=== PATIENT | female | born 1960 | race Caucasian/White ===

== ENCOUNTER 2023-08-03 19:53 | Inpatient (IN) | payer BC, SELFPAY ==
[2023-08-03] VITALS (11 sets, daily range): BP systolic 118–174; BP diastolic 60–113; PULSE 88–178; RESP 15–24; TEMP 36.1; O2SAT 93–97; BMI 44.7
--- NOTE | 2023-08-03 | ECG_ITS ---
Test Reason : CHEST PAIN Blood Pressure : / mmHG Vent. Rate : 157 BPM Atrial Rate : 314 BPM P-R Int : 000 ms QRS Dur : 076 ms QT Int : 242 ms P-R-T Axes : 215 055 268 degrees QTc Int : 391 ms Atrial flutter with 2:1 A-V conduction Abnormal ECG No previous ECGs available Referred By: Prabha Medina Electronically Signed By:BRENDAN BRITO
--- NOTE | 2023-08-03 | ECG_ITS ---
Test Reason : RHYTHM CHAGE Blood Pressure : / mmHG Vent. Rate : 082 BPM Atrial Rate : 082 BPM P-R Int : 164 ms QRS Dur : 074 ms QT Int : 366 ms P-R-T Axes : 024 031 044 degrees QTc Int : 427 ms Normal sinus rhythm Normal ECG When compared with ECG of 03-AUG-2023 22:31, Sinus rhythm has replaced Atrial fibrillation Vent. rate has decreased BY [address] no longer depressed in Anterior leads Referred By: Prabha Medina Electronically Signed By:BRENDAN BRITO
--- NOTE | 2023-08-03 | ECG_ITS ---
Test Reason : AFIB Blood Pressure : / mmHG Vent. Rate : 161 BPM Atrial Rate : 000 BPM P-R Int : 000 ms QRS Dur : 072 ms QT Int : 270 ms P-R-T Axes : 000 055 -17 degrees QTc Int : 441 ms Rhythm shows atrial flutter with variable block (can't exclude fibrillation) Nonspecific ST abnormality Abnormal ECG When compared with ECG of 03-AUG-2023 20:06, No significant changes seen Referred By: Prabha Medina Electronically Signed By:BRENDAN BRITO
--- NOTE | ~2023-08-03 | XR_ITS ---
EXAMINATION: XR CHEST CLINICAL INFORMATION: Chest pain COMPARISON: None available. TECHNIQUE: Frontal view of the chest was obtained. FINDINGS: No significant abnormality is noted involving the heart, lungs, mediastinum, bony thorax or soft tissues. XR/XR chest 1V IMPRESSION: Unremarkable examination.
[2023-08-03 20:19] LABS: MANUAL DIFF FLAG NO
--- NOTE | 2023-08-03 20:19 | ED_ITS ---
HPI - Chest Pain General Chief Complaint: Chest Pain Stated Complaint: chest pain Time Seen by Provider: 08/03/23 20:06 History of Present Illness HPI narrative: 63 y/o F patient; PMH HLD; [id number] to [facility] a with report of sudden onset heart palpitations associated with a central non- radiating chest pressure. The patient denies any prior history of similar symptoms. She took 81mg PO aspirin prior to arrival. The patient denies alcohol use, smoking, or recreational drug use. Related Data Allergies Allergy/AdvReac Type Severity Reaction Status Date / Time No Known Allergies Allergy Verified 08/03/23 20:57 Review of Systems 2 Review of Systems: Yes all other systems are reviewed and are negative [facility] Past Medical History Attestation statement: The following information was validated with the patient. Social History Social History Advance Directives: No Advance Directives Information Provided: No Physical Exam 2 Vital Signs: Vital Signs: Last Vital Signs Temp 96.9 F 08/03/23 19:56 Pulse 155 H 08/03/23 21:35 Resp 16 08/03/23 21:35 BP 121/62 08/03/23 21:35 Pulse Ox 96 08/03/23 21:35 O2 Del Method Room Air 08/03/23 21:35 BMI result Body Mass Index 44.7 Patient is afebrile, hypertensive, with an irregularly irregular rate. Const: Orientation/consciousness: patient oriented x3 HEENT: Head: Yes atraumatic Eyes: Pupils: Equal, round and reactive pupils present EOM: EOMs intact bilaterally Neck: Neck: Yes full ROM, Yes supple and No tender Chest: Chest palpation & inspection: normal inspection of the chest and normal palpation of entire chest wall Resp: Effort & Inspection: normal respiratory effort, able to speak in complete sentences and no respiratory distress Auscultation: clear to auscultation bilaterally Cardio: Rate: tachycardic Rhythm: other (irregularly irregular) P eripheral pulses: Peripheral pulses 2+ throughout GI: Palpation (GI): Soft to palpation, not firm, nontender, no guarding and not rigid Auscultation: normal bowel sounds Neuro: General: patient oriented x3 Cranial nerves: Yes Equal, round and reactive pupils present Course Course Course Narrative: Patient is afebrile, stable but in atrial fibrillation with RVR. Provided diltiazem 25mg IVP with some temporary improvement, then provided second dose diltiazem 35mg IVP. Patient urinated with mild improvement in HR. Provided third dose diltiazem 35mg IVP. HR improved in <110BPM. Provided 60mg Diltiazem PO. Discussed with cardiology. Recommend eliquis 5mg PO. Recommend diltiazem gtt. Plan: Admit to hospitalist for new onset a flutter with RVR Condition: Stable Medications Administered Generic Name Dose Route Start Last Admin Trade Name Freq PRN Reason Stop Dose Admin Sodium Chloride 1,000 mls @ 999 mls/hr 08/03/23 21:00 08/03/23 20:58 Ns IV 08/03/23 22:00 999 mls/hr .Q1H1M SYLVIE Administration Potassium Chloride 10 meq in 100 mls @ 100 mls/hr 08/03/23 21:00 08/03/23 21:22 Potassium Chloride/H20 IV 08/03/23 22:59 100 mls/hr Q1H SYLVIE Administration Discontinued Medications Generic Name Dose Route Start Last Admin Trade Name Freq PRN Reason Stop Dose Admin Apixaban 5 mg 08/03/23 21:22 08/03/23 21:37 Apixaban 5 Mg Tablet PO 08/03/23 21:23 5 mg ONCE ONE Administration Diltiazem HCl 25 mg 08/03/23 20:13 08/03/23 20:24 Diltiazem Hcl 50 Mg/10 Ml Vial IVPUSH 08/03/23 20:14 25 mg STAT STA Administration Diltiazem HCl 35 mg 08/03/23 20:28 08/03/23 20:36 Diltiazem Hcl 30 Mg Tablet PO 08/03/23 20:29 Not Given ONCE ONE Protocol Diltiazem HCl 35 mg 08/03/23 20:37 08/03/23 20:35 Diltiazem Hcl 50 Mg/10 Ml Vial IVPUSH 08/03/23 20:38 35 mg STAT STA Administration Diltiazem HCl 35 mg 08/03/23 20:55 08/03/23 20:49 Diltiazem Hcl 50 Mg/10 Ml Vial IVPUSH 08/03/23 20:56 35 mg STAT STA Administration Diltiazem HCl 60 mg 08/03/23 20:57 08/03/23 21:12 Diltiazem Hcl 60 Mg Tablet PO 08/03/23 20:58 Not Given ONCE ONE Protocol Diltiazem HCl 30 mg 08/03/23 21:13 08/03/23 21:15 Diltiazem Hcl 30 Mg Tablet PO 08/03/23 21:14 30 mg ONCE ONE Administration Protocol Diltiazem HCl 30 mg 08/03/23 21:14 08/03/23 21:15 Diltiazem Hcl 30 Mg Tablet PO 08/03/23 21:15 30 mg ONCE ONE Administration Protocol Potassium Chloride 20 meq 08/03/23 20:54 08/03/23 21:03 Potassium Chloride Er 20 Meq Tab.Er.Prt PO 08/03/23 20:55 20 meq ONCE ONE Administration Medical Decision Making Lab Data 08/03/23 20:15 08/03/23 21:11 Labs: Lab Results 08/03/23 08/03/23 Range/Units 20:15 21:11 WBC 7.9 (4.8-10.8) X10*3/uL RBC 5.18 (4.20-5.50) X10*6/uL Hgb 14.8 (12.0-16.0) g/dl Hct 43.9 (37.0-47.0) % MCV 84.7 (80.0-98.0) fL MCH 28.6 (27.0-33.0) pg MCHC 33.7 (31.0-35.0) g/dl RDW 13.8 (11.0-16.0) % Plt Count 270 (160-400) X10*3/uL MPV 11.6 (9.4-12.3) fL Immature Gran % (Auto) 0.3 (0.0-0.4) % Neut % (Auto) 45.2 (45-73) % Lymph % (Auto) 45.2 H (20-40) % [place] % (Auto) 6.9 (2-11) % Eos % (Auto) 1.9 (0-4) % Baso % (Auto) 0.5 (0-2) % Lymph # (Auto) 3.6 (1.2-4.9) X10*3/uL [place] # (Auto) 0.5 (0.1-1.2) X10*3/uL Eos # (Auto) 0.2 (0.0-0.4) X10*3/uL Baso # (Auto) 0.0 (0.0-0.2) X10*3/uL Abs Immat Gran (auto) 0.02 (0.00-0.03) X10*3/uL Absolute Neuts (auto) 3.6 (2.0-8.3) x10*3/uL Absolute Nucleated RBC 0.000 (0.0-0.012) X10*3/uL Nucleated RBC % (auto) 0.0 (0.0-0.2) /100WBC PT 11.9 (11.1-13.3) SEC INR 1.0 (0.9-1.1) Sodium 141 (135-145) mmol/L Potassium 3.2 L 4.3 D (3.3-5.1) mmol/L Chloride 105 (96-108) mmol/L Carbon Dioxide 23 (22-29) mmol/L Anion Gap 16 (12-20) BUN 14 (9-16) mg/dL Creatinine 0.99 (0.5-1.4) mg/dL Estim Creat Clear Calc 69.1 Estimated GFR 57 Random Glucose 128 H (60-115) mg/dL Calcium 10.2 (8.4-10.2) mg/dL Magnesium 1.9 (1.6-2.6) mg/dL Total Bilirubin 0.4 (0.0-1.0) mg/dL Direct Bilirubin 0.1 (0.0-0.5) mg/dL AST 21 (5-31) U/L ALT 17 (0-31) U/L Alkaline Phosphatase 77 (39-117) U/L Troponin I High Sens 4.1 (<3.5-17.0) ng/L Total Protein 7.7 (6.5-8.0) g/dL Albumin 4.5 (3.5-5.0) g/dL Independent Interpretation I performed an independent interpretation of an: EKG Interpretation: Atrial flutter 157BPM with RVR, no prior EKG for comparison. Radiology Impression Discussion of test interpretation with radiology: I have reviewed the radiologist's reading. Radiologist Impression: EXAMINATION: XR CHEST CLINICAL INFORMATION: Chest pain COMPARISON: None available. TECHNIQUE: Frontal view of the chest was obtained. FINDINGS: No significant abnormality is noted involving the heart, lungs, mediastinum, bony thorax or soft tissues. XR/XR chest 1V IMPRESSION: Unremarkable examination. Discharge Plan Discharge Clinical Impression: Atrial flutter Patient Disposition: Admitted As Inpatient
[2023-08-03 20:20] LABS: Basophils Percent Auto 0.5 % (0-2); Eosinophils Absolute Auto 0.2 X10*3/uL (0.0-0.4); Eosinophils Percent Auto 1.9 % (0-4); Hematocrit 43.9 % (37.0-47.0); Hemoglobin 14.8 g/dl (12.0-16.0); Imm Gran Abs Auto 0.02 X10*3/uL (0.00-0.03); Imm Gran Pct Auto 0.3 % (0.0-0.4); Lymphocytes Absolute Auto 3.6 X10*3/uL (1.2-4.9); Lymphocytes Percent Auto 45.2 % (20-40); Mean Corpuscular HGB Conc 33.7 g/dl (31.0-35.0); Mean Corpuscular Hemoglobin 28.6 pg (27.0-33.0); Mean Corpuscular Volume 84.7 fL (80.0-98.0); Mean Platelet Volume 11.6 fL (9.4-12.3); Monocytes Absolute Auto 0.5 X10*3/uL (0.1-1.2); Monocytes Percent Auto 6.9 % (2-11); Neutrophils Absolute Auto 3.6 x10*3/uL (2.0-8.3); Neutrophils Percent Auto 45.2 % (45-73); Platelet Count 270 X10*3/uL (160-400); Red Blood Count 5.18 X10*6/uL (4.20-5.50); Red Cell Distribution Width 13.8 % (11.0-16.0); White Blood Count 7.9 X10*3/uL (4.8-10.8)
[2023-08-03] MEDS: dilTIAZem HCL 50 MG/10 ML VIAL 25 MG IVPUSH (20:24)
--- NOTE | 2023-08-03 20:25 | MHC.EDTECH ---
This Tech assumed care of this pt upon arrival. Pt changed over into a hospital gown and placed on a panel monitor. EKG completed and handed to a provider
--- NOTE | 2023-08-03 20:25 | PC.NURSE ---
Addendum entered by Mary Bravo 08/03/23 21:35: 2nd IV line established. Plan for Cardizem drip. VSS @ this time. Pt denies pain/discomfort. Addendum entered by Mary Bravo 08/03/23 21:17: Pt medicated with PO Cardizem 60 mg and PO Potassium. HR continues to fluctuate 120-150 bpm. Pt continues to deny pain/discomfort. VSS. MD at bedside. Addendum entered by Mary Bravo 08/03/23 20:49: Pt medicated with an additional dose of 35 mg @ 2048 due to persistent Afib per MD order as BP remains WNL. Addendum entered by Mary Bravo 08/03/23 20:42: HR 100 bpm, BP stable after second dose of Cardizem. Pt assisted to bedside commode by this RN and behavioral health tech. HR increasing to 190 bpm/min with exertion/movement. Pt continues to deny pain/discomfort. MD at bedside. Addendum entered by Mary Bravo 08/03/23 20:37: Little effect noted after first dose. HR briefly decreased to 100 bpm but quickly increased back to 180/min. Pt medicated with an additional dose of Cardizem @ 2034. Pt remains pain free @ this time, requesting to use commode. VSS. Original Note: Medicated per AUG.
[2023-08-03 20:27] LABS: Prothrombin Time 11.9 SEC (11.1-13.3)
[2023-08-03] MEDS: dilTIAZem HCL 50 MG/10 ML VIAL 35 MG IVPUSH ×2 (20:35→20:49)
[2023-08-03 20:37] LABS: Alanine Aminotransferase 17 U/L (0-31); Albumin Level 4.5 g/dL (3.5-5.0); Alkaline Phosphatase 77 U/L (39-117); Anion Gap 16 (12-20); Aspartate Amino Transferase 21 U/L (5-31); Bilirubin Direct 0.1 mg/dL (0.0-0.5); Bilirubin Total 0.4 mg/dL (0.0-1.0); Blood Urea Nitrogen 14 mg/dL (9-16); Calcium 10.2 mg/dL (8.4-10.2); Carbon Dioxide 23 mmol/L (22-29); Chloride 105 mmol/L (96-108); Creatinine Clr Calc Pharmacy 69.1; Estimated Glomerular Filt Rate 57; Glucose Random 128 mg/dL (60-115); Magnesium 1.9 mg/dL (1.6-2.6); Potassium 3.2 mmol/L (3.3-5.1); Sodium 141 mmol/L (135-145); Total Protein 7.7 g/dL (6.5-8.0)
[2023-08-03 20:43] LABS: Troponin-I High Sensitivity 4.1 ng/L (<3.5-17.0)
[2023-08-03] MEDS: 0.9 % Sodium Chloride 1,000 ML 999 ML IV (20:58)
[2023-08-03] MEDS: Potassium Chloride ER 20 MEQ TAB.ER.PRT PO (21:03)
[2023-08-03] MEDS: dilTIAZem HCL 30 MG TABLET PO ×2 (21:15)
[2023-08-03] MEDS: Potassium Chloride/H20 10 MEQ/100 ML PIGGYBACK 100 MEQ IV ×2 (21:22→22:34)
[2023-08-03] MEDS: Apixaban 5 MG TABLET PO (21:37)
[2023-08-03 21:38] LABS: Potassium 4.3 mmol/L (3.3-5.1)
[2023-08-03] MEDS: dilTIAZem HCL 125 MG in 0.9 % Sodium Chloride 100 ML IVCONT (21:45)
--- NOTE | 2023-08-03 21:45 | PC.NURSE ---
Assumed care of pt. Pt lying on stretcher, no acute distress. Starting Dilt drip per orders.
[2023-08-03 21:52] LABS: Thyroid Stimulating Hormone 6.34 uIU/mL (0.32-4.0)
[2023-08-03 21:55] LABS: Influenza A PCR NEGATIVE (Negative); Influenza B PCR NEGATIVE (Negative); Resp Syncy Virus RNA Qual PCR NEGATIVE (Negative); SARS COV2 PCR INHOUSE NEGATIVE (Negative)
--- NOTE | 2023-08-03 21:59 | PC.NURSE ---
Pt aware of plan for admission. Report given to FRANCISCO Garcia.
[2023-08-03] MEDS: Metoprolol Tartrate 50 MG TABLET PO (22:18)
--- NOTE | 2023-08-03 22:37 | PHA.MEDREC ---
Pharmacy Consult ? Medication Reconciliation Pharmacy has completed the medication reconciliation. Patient reported medications. Shayy Medley, BlayneD
--- NOTE | 2023-08-03 22:51 | PC.NURSE ---
Pt not responding to dilt drip, despite tiotration. Oral medication given with delayed response, now converted to NSR.
--- NOTE | 2023-08-03 23:22 | PC.NURSE ---
Diltiazem drip paused per Charlie AGUILA.
--- NOTE | 2023-08-03 23:39 | PM.IMHP ---
History of Present Illness Date of Service: 08/03/23 Attending physician on admission: Antonieta Chiu Chief Complaint: Palpitations Madhavi Viera is a very pleasant 63 years old woman with past medical history significant for hyperlipidemia on fenofibrate presents to the emergency department complaining of sudden onset of right-sided chest pain associated with palpitations around 7 pm while she was watching a comedy movie. She was also experiencing shortness of breath and lightheadedness. No events of syncope were reported. She denied headache, nausea or vomiting. She did not report any abdominal pain. There is no fever or chills. She denied recent consumption of alcohol. She denied tobacco smoking or illicit drug use. She took a baby aspirin before coming to the emergency department. Patient denies history of strokes, hypertension, congestive heart failure or diabetes. She takes aspirin daily. In the ED, she was found to have severe tachycardia (HR went up to 180 bpm consistent with SVT). The rest of vital signs are normal. Blood workup is remarkable for hypokalemia, 3.2; otherwise her CBC and CMP are basically normal. TSH is 6.34. Viral testing for influenza and COVID-19 is negative. CXR is negative. ED tx: total of 155 mg of diltiazem p.o., total of 95 mg of diltiazem IV, metoprolol 50 mg PO, then diltiazem IV infusion and potassium 10 mEq IV, Eliquis 5 mg PO. During my 1st encounter with the patient her heart rate was fluctuating between 160-180 bpm consistent with SVT. The patient was looking quite uncomfortable. Cardiology service was recontacted by ED provider and recommended digoxin IV if tachycardia persists. Subsequently, patient heart rate converted to normal sinus rhythm. Review of Systems Review of Systems: All 12 systems were reviewed and normal except as noted in HPI. [facility] Medical History (Updated 08/04/23 @ 02:20 by Antonieta Chiu MD) Hyperlipidemia Social History Smoked in Last 30 Days: No Use of substances other than those prescribed or required for medical reasons: No Advance Directives: No Advance Directives Information Provided: No Patient : No Meds Allergies Allergy/AdvReac Type Severity Reaction Status Date / Time No Known Allergies Allergy Verified 08/03/23 20:57 Active Medications: Current Medications Acetaminophen (Acetaminophen 325 Mg Tablet) 975 mg PO Q6H PRN PRN Reason: Pain, Mild (Pain Scale 1-3) Apixaban (Apixaban 5 Mg Tablet) 5 mg PO Q12H [facility] Diltiazem HCl 125 mg/ Sodium (Chloride) 125 mls @ 0 mls/hr IVCONT .Q0M [facility]; Protocol Last Titration: 08/03/23 23:22 Dose: 0 mg/hr, 0 mls/hr Melatonin (Melatonin 3 Mg Tablet) 6 mg PO BEDTIME PRN PRN Reason: Insomnia Metoprolol Tartrate (Metoprolol Tartrate 50 Mg Tablet) 50 mg PO Q12H [facility]; Protocol Sodium Chloride (0.9 % Sodium Chloride Flush 3 Ml Syringe) 3 ml IVFLUSH QSHIFT [facility] Home meds: (pt also takes aspirin 81 mg PO daily). Home Medications Medication Instructions Recorded Confirmed Last Taken Type Probiotic 1 cap PO DAILY 08/03/23 08/03/23 08/03/23 History ascorbic acid (vitamin C) 500 mg 500 mg PO DAILY 08/03/23 08/03/23 08/03/23 History tablet cholecalciferol (vitamin D3) 25 25 mcg PO DAILY 08/03/23 08/03/23 08/03/23 History mcg (1,000 unit) tablet fenofibrate micronized 67 mg 67 mg PO QAM 08/03/23 08/03/23 08/03/23 History capsule pomegran fruit xt-pomegra seed 250 1 cap PO DAILY 08/03/23 08/03/23 08/03/23 History mg capsule Physical Exam Vital Signs and Narrative: Vital Signs: Last Vital Signs Temp 96.9 F 08/03/23 19:56 Pulse 88 08/03/23 23:07 Resp 15 08/03/23 23:07 BP 129/96 H 08/03/23 23:07 Pulse Ox 97 08/03/23 23:07 O2 Del Method Room Air 08/03/23 23:07 BMI result Body Mass Index 44.7 Constitutional - Awake and Alert, No apparent distress Eyes - PERRLA, EOMI Cardiovascular - Tachycardic. Irregular Respiratory - Normal lung expansion, Normal respiratory effort, No respiratory distress, CTA bilaterally. Tachypnea. Gastrointestinal - NT / ND; +BS; No rebound or guarding Extremities - no calf tenderness bilaterally, no swelling Skin - Warm/Dry Neurological - Alert & oriented x3, CN II-XII in tact, 5/5 strength BUE and BLE Psychological - Appropriate affect Results Labs 08/03/23 20:15 08/03/23 21:11 Labs: Laboratory Results - last 24 hr 08/03/23 08/03/23 20:15 21:11 MCV 84.7 MCH 28.6 MCHC 33.7 RDW 13.8 Plt Count 270 MPV 11.6 Immature Gran % (Auto) 0.3 Neut % (Auto) 45.2 Lymph % (Auto) 45.2 H [place] % (Auto) 6.9 Eos % (Auto) 1.9 Baso % (Auto) 0.5 Lymph # (Auto) 3.6 [place] # (Auto) 0.5 Eos # (Auto) 0.2 Baso # (Auto) 0.0 Abs Immat Gran (auto) 0.02 Absolute Neuts (auto) 3.6 Absolute Nucleated RBC 0.000 Nucleated RBC % (auto) 0.0 PT 11.9 INR 1.0 Anion Gap 16 Estim Creat Clear Calc 69.1 Estimated GFR 57 Random Glucose 128 H Calcium 10.2 Magnesium 1.9 Total Bilirubin 0.4 Direct Bilirubin 0.1 AST 21 ALT 17 Alkaline Phosphatase 77 Total Protein 7.7 Albumin 4.5 TSH 6.34 H Influenza Type A (PCR) NEGATIVE Influenza Type B (PCR) NEGATIVE RSV RNA Qual (PCR) NEGATIVE SARS-CoV-2 RNA (RT-PCR) NEGATIVE Imaging Radiologist's Impressions: Impressions Chest X-Ray 08/03/23 20:22 IMPRESSION: Unremarkable examination. Assessment and Plan (1) Hyperlipidemia: Qualifiers: Hyperlipidemia type: pure hypertriglyceridemia Qualified Code(s): E78.1 - Pure hyperglyceridemia Status: Acute (2) Elevated TSH: Status: Acute (3) Atrial flutter with rapid ventricular response: Status: Acute Plan Madhavi Viera is a 63 years old woman admitted with: Rapid AFib-AFlutter/SVT, new onset. Currently normal sinus rhythm and asymptomatic. Admit to hospitalist service. We will discontinue diltiazem drip. Start therapy with metoprolol tartrate 50 mg p.o. b.i.d. CHADS2 score = 0. Continue treatment with aspirin 81 mg p.o. daily unless cardiology service recommends anticoagulation. Check echocardiogram. Recheck troponin. Cardiology consult for further recommendations. Hyperlipidemia. Continue fenofibrate. Check fasting lipid panel. Elevated TSH. Check free T4. Obesity, BMI 44.7 kg/m2. Weight loss. DVT prophylaxis: received Eliquis. Code status: Full. Patient Will need hospitalization for at least 2 midnights for rapid AFib-AFlutter evaluation and treatment. She needs close cardiac monitoring and evaluation by specialists. Quality Stroke Does the patient have a stroke diagnosis?: No VTE Prior VTE?: No VTE Risk Level:: Medical - moderate - high VTE Device Contraindication: Treatment Not Indicated VTE Drug Contraindication: N/A - Med Ordered
--- NOTE | 2023-08-04 01:20 | PC.NURSE ---
Pt up and ambulating to bathroom with no acute distress, returned to the [facility].
[2023-08-04 02:03] VITALS: BP 111/60; PULSE 74; RESP 17; TEMP 36.6; O2SAT 93
[2023-08-04 02:04] VITALS: BP 111/60; PULSE 73; RESP 23; O2SAT 93
[2023-08-04 04:36] LABS: Free T4 (Free Thyroxine) 0.97 ng/dL (0.71-1.85)
[2023-08-04 05:46] LABS: Cholesterol 177 mg/dL (<200); HDL Cholesterol 51 mg/dL (>40); LDL Cholesterol Calculated 113 mg/dL (<100); Triglycerides 69 mg/dL (<150)
[2023-08-04 05:47] LABS: Troponin-I High Sensitivity 10.1 ng/L (<3.5-17.0)
[2023-08-04 05:50] VITALS: BP 114/68; PULSE 63; RESP 14; TEMP 36.6; O2SAT 94
[2023-08-04] MEDS: Metoprolol Tartrate 50 MG TABLET PO (06:23)
--- NOTE | 2023-08-04 07:00 | CA_ITS ---
Transthoracic Echocardiogram Patient (Last, First, Middle): Madhavi Viera, Gender: Female Date of : 1960 Age: 63 Procedure Date: 08/04/2023 Procedure Type: Transthoracic Echocardiogram Location: ER Height: 157.48 cm Weight: 110.68 kg BSA: 2.08 m2 Heart Rate: bpm BP: 114 / 68 mmHg Airline Hostess: Referring MD: Antonieta Chiu MD Symptoms: Rapid a-fib, new onset Study Quality: Adequate with contrast ECG Rhythm: Sinus Conclusions: - The left ventricular systolic function is hyperdynamic. The calculated ejection fraction is 71% by biplane method. - No obvious valvular pathology seen on this study. Findings Left Ventricle Normal left ventricular cavity size. The left ventricular systolic function is hyperdynamic. The calculated ejection fraction is 71% by biplane method. There is no evidence of regional wall motion abnormalities. Diastolic function is normal for age. There is mild septal and mild basal asymmetric hypertrophy. Right Ventricle Mildly increased right ventricular cavity size. There is normal right ventricular systolic function. Atria Both atria are normal in size. Aortic Valve There is a normal trileaflet aortic valve. There is no aortic valve stenosis. There is no aortic valve regurgitation. Mitral Valve The mitral valve appears normal. There is trace mitral valve regurgitation. There is no mitral valve stenosis. Pulmonic Valve The pulmonic valve is likely normal. Tricuspid Valve There is mild tricuspid valve regurgitation. There is no evidence of pulmonary hypertension. Great Vessels The asc aorta is normal in size. Venous The inferior vena cava is normal in size. Pericardium/Pleural There is no evidence of pericardial effusion. Prior Study Comparison No prior study available for comparison. Recommendations, Care & Conclusions No obvious valvular pathology seen on this study. Measurements 2D Linear Measurements IVSd: 1.14 0.6-0.9/0.6-1.0 cm LVIDd: 4.42 3.9-5.3/4.2-5.9 cm LVIDd Index: 2.13 2.4-3.2/2.2-3.1 cm/m2 LVIDs: 2.78 2.0-3.6 cm LVPWd: 1.04 0.7-1.1 cm Ao Root: 3.40 2.1-3.5 cm LA Diam: 4.10 2.7-3.8/3.0-4.0 cm LAIDs Index: 1.97 1.5-2.3 cm/m2 LV Mass: 209.19 67-162/88-224 g LV Mass Index: 100.57 43-95/49-115 g/m2 LVOT Diam: 2.50 3.0+(-)1.3 cm 2D Systolic Function EF 4C: 73.90 >55% EF 2C: 63.10 >55% EF BiP: 70.50 >55% Mitral Valve MV Pk E: 0.84 MV PK A: 0.60 MV Decel Time: 159.00 E/A: 1.40 E'Lateral: 9.46 E'Medial: 7.29 E/E' Med: 11.50 E/E' Lat: 8.80 PHT: 47.00 MVA PHT: 4.68 Decel [place]: 5.25 Aortic Valve AoV Pk Aiden: 1.62 AoV Mn Aiden: 1.03 AoV VTI: 0.30 AoV Pk Grad: 10.00 Aov Mn Grad: 5.00 RAI Cont.VTI: 4.05 LVOT LVOT Pk Aiden: 1.12 LVOT Mn Aiden: 0.72 LVOT VTI: 0.25 LVOT Pk Grad: 5.00 LVOT Mn Grad: 2.00 LVOT Diam: 2.50 LVOT Area: 4.91 Diastolic Function MV Pk E: 0.84 MV Pk A: 0.60 E/A: 1.40 E'Medial: 7.29 E/E' Med: 11.50 E' Laterial: 9.46 E/E' Lat: 8.80 Right Ventricle TAPSE (mm): 29.10 TVS' Aiden: 11.20 Tricuspid Valve TR Pk Aiden: 2.26 TR Pk Grad: 20.00 Great Vessels Aorta Ao Root-2D: 3.40 2.0-3.7 cm Ao Asc: 3.50 2.1-3.4 cm Pulmonary Valve PV Pk Aiden: 0.92 Peak PV Grad: 3.00 Updated in Other Vendor System with Status of Final Tristian Daigle MD electronically signed on 08/04/2023 8:35:29 AM with status of Final
[2023-08-04 07:08] LABS: Reflex LDLD? No
[2023-08-04 07:18] LABS: Estimated Average Glucose 120 mg/dL; Hemoglobin A1c % 5.8 % (<6.0)
[2023-08-04] MEDS: Cholecalciferol (Vitamin D3) 25 MCG TABLET PO (08:14)
[2023-08-04] MEDS: Ascorbic Acid 500 MG TABLET PO (08:14)
[2023-08-04] MEDS: Aspirin 81 MG TAB.CHEW PO (08:14)
[2023-08-04 08:16] VITALS: BP 118/50; PULSE 67; RESP 18; TEMP 36.7; O2SAT 95
[2023-08-04] MEDS: 0.9 % Sodium Chloride Flush 3 ML SYRINGE IVFLUSH (08:21)
--- NOTE | 2023-08-04 08:22 | PC.NURSE ---
alert and oriented, respirations even and unlabored. remains NSR on monitor at this time, no obvious signs/symptoms of distress noted. medicated per the MAR.
--- NOTE | 2023-08-04 08:29 | MHC.CM.PN ---
CM spoke with Patient. Patient lives in a house with her /HCP in [place]; she was in [place] to attend a , and she required no services nor DME STAFF EDITOR. Home/self care is the goal and CM has initiated and will follow for dc planning.Patient's PCP recently retired and she now sees a TOOL MARKER, but she cannot recall the name.
--- NOTE | 2023-08-04 08:41 | ECG_ITS ---
Test Reason : A FLUTTER Blood Pressure : / mmHG Vent. Rate : 062 BPM Atrial Rate : 062 BPM P-R Int : 150 ms QRS Dur : 078 ms QT Int : 456 ms P-R-T Axes : 032 027 071 degrees QTc Int : 462 ms Normal sinus rhythm Slight T inversion anterolateral leads Abnormal ECG When compared with ECG of 03-AUG-2023 22:47, T wave inversion now evident in Anterolateral leads Referred By: Brendan Brito Electronically Signed By:BRENDAN BRITO
--- NOTE | 2023-08-04 10:12 | PM.CNCAR ---
History of Present Illness History of Present Illness Date of Service: 08/04/23 Chief complaint: Rapid Atrial Fibrillation Narrative: This is a cardiology consultation regarding atrial flutter. Patient is actually from [place]. She is here for a which is supposed to be tomorrow. She does not have any history of cardiovascular issues including coronary artery disease or myocardial infarction or cardiomyopathy or in fact any other cardiac issues. She was walking in the mall yesterday morning and did not feel good. She thought as though she was feeling a bit short of breath. She was also having some headaches. This apparently unusual for her. Then last night, suddenly noticed some chest pressure and the same time she also had some palpitations. That led to ER visit when she was found to be in atrial flutter. She got intravenous medications and then after like 3 hours or so she went back in normal sinus rhythm. Then she felt fine. Today morning she feels completely normal. Prior to all this, no cardiovascular problems or symptoms. Review of Systems Review of Systems: Yes all other systems are reviewed and are negative Constitutional: Constitutional: Reports as per HPI and Reports no additional constitutional complaints Eyes: Eyes: Reports as per HPI and Denies no additional eye complaints ENT: Denies system reviewed and no additional complaints, except as documented and Reports as per HPI Cardiovascular: Cardiovascular: Reports as per HPI, Reports no additional cardiovascular complaints, Denies acrocyanosis, Denies cool extremities, Denies chest pain, Denies leg edema, Denies lightheadedness, Reports palpitations and Reports dyspnea Respiratory: Respiratory: Reports as per HPI, Denies no additional respiratory complaints and Reports dyspnea Gastrointestinal: Gastrointestinal: Reports as per HPI and Denies no additional gastrointestinal complaints Genitourinary: Genitourinary: Reports as per HPI Musculoskeletal: Musculoskeletal: Reports no additional musculoskeletal complaints and Reports as per HPI Integumentary/Breasts: Skin/Breast: Reports system reviewed and no additional complaints, except as docu Neurologic: Reports system reviewed and no additional complaints, except as documented and Reports as per HPI Psychiatric: Psychiatric: Reports no additional psychiatric complaints and Reports as per HPI Endocrine: Endocrine: Reports no additional endocrine complaints, Reports as per HPI and Reports palpitations Hematologic/Lymphatic: Hematologic/Lymphatic: Reports no additional hematologic/lymphatic complaints and Reports as per HPI Allergic/Immunologic: Allergic/Immunologic: Reports no additional allergic/immunologic complaints and Reports as per HPI [facility] Past Medical History Medical History (Updated 08/04/23 @ 02:20 by Antonieta Chiu MD) Hyperlipidemia Family History Family History (Updated 08/04/23 @ 10:15 by Tristian Daigle MD) Father Myocardial infarction Mother Atrial fibrillation Pacemaker Social History Social History Patient Tobacco Use Status: Tobacco use Unknown Smoked in Last 30 Days: No Use of substances other than those prescribed or required for medical reasons: No Advance Directives: No Advance Directives Information Provided: No Patient : No service: No Meds Allergies Allergy/AdvReac Type Severity Reaction Status Date / Time No Known Allergies Allergy Verified 08/03/23 20:57 Active Medications: Current Medications Acetaminophen (Acetaminophen 325 Mg Tablet) 975 mg PO Q6H PRN PRN Reason: Pain, Mild (Pain Scale 1-3) Ascorbic Acid (Ascorbic Acid 500 Mg Tablet) 500 mg PO DAILY [facility] Last Admin: 08/04/23 08:14 Dose: 500 mg Aspirin (Aspirin 81 Mg Tab.Chew) 81 mg PO DAILY [facility] Last Admin: 08/04/23 08:14 Dose: 81 mg Diltiazem HCl 125 mg/ Sodium (Chloride) 125 mls @ 0 mls/hr IVCONT .Q0M [facility]; Protocol Last Titration: 08/03/23 23:22 Dose: 0 mg/hr, 0 mls/hr Melatonin (Melatonin 3 Mg Tablet) 6 mg PO BEDTIME PRN PRN Reason: Insomnia Metoprolol Tartrate (Metoprolol Tartrate 50 Mg Tablet) 50 mg PO Q12H [facility]; Protocol Last Admin: 08/04/23 06:23 Dose: 50 mg Non-Formulary Medication (Fenofibrate Micronized) 67 mg PO DAILY [facility] Sodium Chloride (0.9 % Sodium Chloride Flush 3 Ml Syringe) 3 ml IVFLUSH QSHIFT [facility] Last Admin: 08/04/23 08:21 Dose: 3 ml Vitamin D (Cholecalciferol (Vitamin D3) 25 Mcg Tablet) 25 mcg PO DAILY [facility] Last Admin: 08/04/23 08:14 Dose: 25 mcg Home Medications Medication Instructions Recorded Confirmed Last Taken Type Probiotic 1 cap PO DAILY 08/03/23 08/03/23 08/03/23 History ascorbic acid (vitamin C) 500 mg 500 mg PO DAILY 08/03/23 08/03/23 08/03/23 History tablet cholecalciferol (vitamin D3) 25 25 mcg PO DAILY 08/03/23 08/03/23 08/03/23 History mcg (1,000 unit) tablet fenofibrate micronized 67 mg 67 mg PO QAM 08/03/23 08/03/23 08/03/23 History capsule pomegran fruit xt-pomegra seed 250 1 cap PO DAILY 08/03/23 08/03/23 08/03/23 History mg capsule Physical Exam Vital Signs: Vital Signs: Last Vital Signs Temp 98.0 F 08/04/23 08:16 Pulse 67 08/04/23 08:16 Resp 18 08/04/23 08:16 BP 118/50 L 08/04/23 08:16 Pulse Ox 95 08/04/23 08:16 O2 Del Method Room Air 08/04/23 08:16 BMI result Body Mass Index 44.7 Const: General: comfortable and no acute distress Orientation/consciousness: patient oriented x3 HEENT: Other: Unremarkable Head: Yes normal to inspection Neck: Neck: Yes normal visual inspection Chest: Chest palpation & inspection: normal inspection of the chest Resp: Auscultation: clear to auscultation bilaterally Cardio: Palpation: normal PMI Heart sounds: S1 normal heart sound present, S2 normal heart sound present, no gallops, no murmurs and no rubs GI: Palpation (GI): Soft to palpation Back/Spine/Pelvis: Other: unremarkable Skin: General skin exam: no rashes or lesions noted Neuro: General: patient oriented x3 Extrem: General: Yes normal to inspection Psych: Mental Status: mental status grossly normal Objective Labs and Meds 08/03/23 20:15 08/03/23 21:11 Lab results: Laboratory Results - last 24 hr 08/03/23 08/03/23 08/04/23 20:15 21:11 05:03 WBC 7.9 RBC 5.18 Hgb 14.8 Hct 43.9 MCV 84.7 MCH 28.6 MCHC 33.7 RDW 13.8 Plt Count 270 MPV 11.6 Immature Gran % (Auto) 0.3 Neut % (Auto) 45.2 Lymph % (Auto) 45.2 H [place] % (Auto) 6.9 Eos % (Auto) 1.9 Baso % (Auto) 0.5 Lymph # (Auto) 3.6 [place] # (Auto) 0.5 Eos # (Auto) 0.2 Baso # (Auto) 0.0 Abs Immat Gran (auto) 0.02 Absolute Neuts (auto) 3.6 Absolute Nucleated RBC 0.000 Nucleated RBC % (auto) 0.0 PT 11.9 INR 1.0 Sodium 141 Potassium 3.2 L 4.3 D Chloride 105 Carbon Dioxide 23 Anion Gap 16 BUN 14 Creatinine 0.99 Estim Creat Clear Calc 69.1 Estimated GFR 57 Random Glucose 128 H Estimat Average Glucose 120 Hemoglobin A1c % 5.8 Calcium 10.2 Magnesium 1.9 Total Bilirubin 0.4 Direct Bilirubin 0.1 AST 21 ALT 17 Alkaline Phosphatase 77 Troponin I High Sens 4.1 10.1 D Total Protein 7.7 Albumin 4.5 Triglycerides 69 Cholesterol 177 LDL Cholesterol, Calc 113 H HDL Cholesterol 51 TSH 6.34 H Free T4 0.97 Influenza Type A (PCR) NEGATIVE Influenza Type B (PCR) NEGATIVE RSV RNA Qual (PCR) NEGATIVE SARS-CoV-2 RNA (RT-PCR) NEGATIVE ECG Interpretation: In the initial EKG, suggestive of atrial flutter with 2:1 block; ventricular rate 157/Min. In the 2nd EKG, possible atrial fibrillation but still could be flutter. Nonspecific ST-T changes. Rate is 161/Min. In the next EKG, rhythm is sinus at 82/Min. No significant ST-T changes. In the morning EKG from today, slight T inversions noted in the anterior leads and 1, aVL. Imaging Radiologist's impression: Impressions Chest X-Ray 08/03/23 20:22 IMPRESSION: Unremarkable examination. Assessment and Plan (1) Atrial flutter with rapid ventricular response: Status: Acute Plan Approximately 3 hour duration of atrial flutter with rapid rate and possibly some atrial fibrillation but more so flutter. In the ER, it appears that she had received a combination of IV diltiazem, oral diltiazem, oral metoprolol. Now back in sinus rhythm. She can remain on metoprolol p.o.. As the duration of arrhythmias only about 3 hours, may not need anticoagulation as CHADS2 VASc is low. High sensitivity troponin levels were 4.1 and 10.1. With regard to his subtle T inversions on the EKG, do not think she had an ACS event. We will check another troponin today. Will review the echocardiogram as well. Eventually, she is going to need a stress test or coronary CTA. As the is tomorrow, timing has to be decided. May have to be done rather [place] when she returns there. We will follow up with you. Discussed with Dr. Staples. Procedures Date of Service Date of Service: 08/04/23
[2023-08-04 11:34] LABS: Troponin-I High Sensitivity 6.9 ng/L (<3.5-17.0)
[2023-08-04 12:40] VITALS: BP 116/69; PULSE 75; RESP 18; O2SAT 94
--- NOTE | 2023-08-04 12:41 | PC.NURSE ---
continues to deny any pain at this time. resting quietly in room, vss. call oropeza within reach
--- NOTE | 2023-08-04 15:22 | PM.DS ---
DS: Providers Provider Date of Service: 08/04/23 Date of admission: 08/03/23 23:35 Date of discharge: 08/04/23 Primary care physician: Unknown Physician Consults: 08/03/23 23:38 Consult to Cardiology Routine Consulting Provider: [facility] Reason for consultation: Rapid a-fib, new onset Has provider been notified: Yes DS: Diagnosis Discharge Diagnosis (1) Atrial flutter with rapid ventricular response: Status: Acute DS: Summary Hospital Course Hospital Course: 63 years old woman with past medical history significant for hyperlipidemia on fenofibrate presents to the emergency department complaining of sudden onset of right-sided chest pain associated with palpitations around 7 pm while she was watching a comedy movie. She was also experiencing shortness of breath and lightheadedness. No events of syncope were reported. She denied headache, nausea or vomiting. She did not report any abdominal pain. There is no fever or chills. She denied recent consumption of alcohol. She denied tobacco smoking or illicit drug use. She took a baby aspirin before coming to the emergency department. Patient denies history of strokes, hypertension, congestive heart failure or diabetes. She takes aspirin daily. In the ED, she was found to have severe tachycardia (HR went up to 180 bpm consistent with SVT). The rest of vital signs are normal. Blood workup is remarkable for hypokalemia, 3.2; otherwise her CBC and CMP are basically normal. TSH is 6.34. Viral testing for influenza and COVID-19 is negative. CXR is negative. ED tx: total of 155 mg of diltiazem p.o., total of 95 mg of diltiazem IV, metoprolol 50 mg PO, then diltiazem IV infusion and potassium 10 mEq IV, Eliquis 5 mg PO. During my 1st encounter with the patient her heart rate was fluctuating between 160-180 bpm consistent with SVT. The patient was looking quite uncomfortable. Cardiology service was recontacted by ED provider and recommended digoxin IV if tachycardia persists. Subsequently, patient heart rate converted to normal sinus rhythm. Hospital course: patient came with aflutter with rvr -received iv diltazem seems improved ,now on po metoprolol 50 mg po bid .no AC due to low chadvasc.now is sinus rythem inaddition has mild elevated tsh,free t4 normal-please repeat tsh in 1 week outpatient follow up pcp and cardiology outpatient. plan: continue po metoprolol 50 mg po bid please repeat tsh in 1 week outpatient follow up pcp and cardiology outpatient For further workup and management. Time Attestation Discharge coordination time: Greater than 30 minutes Quality: Safe Use of Opioids Does Pt have an Active Cancer Diagnosis on the Problem List?: No Quality: Stroke Does the patient have a stroke diagnosis?: No Physical Exam Vital Signs: Vital Signs: Last Vital Signs Temp 98.0 F 08/04/23 08:16 Pulse 75 08/04/23 12:40 Resp 18 08/04/23 12:40 BP 116/69 08/04/23 12:40 Pulse Ox 94 08/04/23 12:40 O2 Del Method Room Air 08/04/23 12:40 BMI result Body Mass Index 44.7 Appearance: Alert.? Oriented X3.? not in distress.? cvs: rrr, [id number] , no murmur res: clear to auscultation ,no rhonchii or wheezing abd: no rebound or guarding ,nt, bs present. ext pulses present , no cyanosis . neuro: axo3 , nonfocal. DS: Data Data Completed and Pending Labs on day of discharge: Laboratory Results - last 24 hr 08/03/23 08/03/23 08/04/23 20:15 21:11 05:03 WBC 7.9 RBC 5.18 Hgb 14.8 Hct 43.9 MCV 84.7 MCH 28.6 MCHC 33.7 RDW 13.8 Plt Count 270 MPV 11.6 Immature Gran % (Auto) 0.3 Neut % (Auto) 45.2 Lymph % (Auto) 45.2 H [place] % (Auto) 6.9 Eos % (Auto) 1.9 Baso % (Auto) 0.5 Lymph # (Auto) 3.6 [place] # (Auto) 0.5 Eos # (Auto) 0.2 Baso # (Auto) 0.0 Abs Immat Gran (auto) 0.02 Absolute Neuts (auto) 3.6 Absolute Nucleated RBC 0.000 Nucleated RBC % (auto) 0.0 PT 11.9 INR 1.0 Sodium 141 Potassium 3.2 L 4.3 D Chloride 105 Carbon Dioxide 23 Anion Gap 16 BUN 14 Creatinine 0.99 Estim Creat Clear Calc 69.1 Estimated GFR 57 Random Glucose 128 H Estimat Average Glucose 120 Hemoglobin A1c % 5.8 Calcium 10.2 Magnesium 1.9 Total Bilirubin 0.4 Direct Bilirubin 0.1 AST 21 ALT 17 Alkaline Phosphatase 77 Troponin I High Sens 4.1 10.1 D Total Protein 7.7 Albumin 4.5 Triglycerides 69 Cholesterol 177 LDL Cholesterol, Calc 113 H HDL Cholesterol 51 TSH 6.34 H Free T4 0.97 Influenza Type A (PCR) NEGATIVE Influenza Type B (PCR) NEGATIVE RSV RNA Qual (PCR) NEGATIVE SARS-CoV-2 RNA (RT-PCR) NEGATIVE 08/04/23 10:31 WBC RBC Hgb Hct MCV MCH MCHC RDW Plt Count MPV Immature Gran % (Auto) Neut % (Auto) Lymph % (Auto) [place] % (Auto) Eos % (Auto) Baso % (Auto) Lymph # (Auto) [place] # (Auto) Eos # (Auto) Baso # (Auto) Abs Immat Gran (auto) Absolute Neuts (auto) Absolute Nucleated RBC Nucleated RBC % (auto) PT INR Sodium Potassium Chloride Carbon Dioxide Anion Gap BUN Creatinine Estim Creat Clear Calc Estimated GFR Random Glucose Estimat Average Glucose Hemoglobin A1c % Calcium Magnesium Total Bilirubin Direct Bilirubin AST ALT Alkaline Phosphatase Troponin I High Sens 6.9 Total Protein Albumin Triglycerides Cholesterol LDL Cholesterol, Calc HDL Cholesterol TSH Free T4 Influenza Type A (PCR) Influenza Type B (PCR) RSV RNA Qual (PCR) SARS-CoV-2 RNA (RT-PCR) Imaging Chest x-ray: Radiologist's impression: ITS Impressions Chest X-Ray 08/03/23 20:22 IMPRESSION: Unremarkable examination. Discharge Plan Discharge Anticipated Discharge Date/Time: 08/04/23 15:18 Patient Disposition: Home, Self-Care Discharge Diagnosis: aflutter Referrals: Physician,Unknown J [Primary Care Provider] - 1 Week Discharge Medications: New metoprolol tartrate 50 mg Tablet 50 mg PO Q12H Qty: 60 0RF Protocol: Hold for SBP/HR < HOLD for SBP < : 90 HOLD for HR < : 60 Continued fenofibrate micronized 67 mg capsule 67 mg PO QAM ascorbic acid (vitamin C) 500 mg Tablet 500 mg PO DAILY pomegran fruit xt-pomegra seed 250 mg Capsule 1 cap PO DAILY cholecalciferol (vitamin D3) 25 mcg (1,000 unit) Tablet 25 mcg PO DAILY Probiotic 1 cap PO DAILY Discharge Orders: Discharge Order (Routine); Ordered 08/04/23 Ordered By: Michael Staples Diet: Advance to usual diet Activity on Discharge: As tolerated Stand Alone Forms: Patient Portal Discharge page Care Plan Goals: patient came with aflutter with rvr -received iv diltazem seems improved ,now on po metoprolol 50 mg po bid .no AC due to low chadvasc. inaddition has mild elevated tsh,free t4 normal-please repeat tsh in 1 week outpatient follow up pcp and cardiology outpatient. Health Concerns: as above. Plan of Treatment: as above. Assessment: as above.
--- NOTE | 2023-08-04 15:23 | MHC.CM.PN ---
Patient has been medically cleared for dc to home today, self care.
== END 2023-08-04 15:51 | disposition home or self-care (01) | DRG 201 ==
LOC: HO.ED 21:44 → HO.EDOVER 08-04 00:51
PROVIDERS: Nurse Practitioner Family; Admitting Provider Internal Medicine; Emergency Provider Emergency Medicine; Visit Provider Internal Medicine
DX: I47.10 Supraventricular tachycardia, unspecified (principal); Z68.41 Body mass index [BMI] 40.0-44.9, adult; E78.5 Hyperlipidemia, unspecified; E66.9 Obesity, unspecified; Z20.822 Contact with and (suspected) exposure to COVID-19; Z79.899 Other long term (current) drug therapy
CPT/HCPCS: 0241U; 36415; 71045; 80048; 80061; 80076; 83036; 83735; 84132; 84439; 84443; 84484; 85025; 85610; 93005; 93306; 99222; 99285; J3480; Q9957

== ENCOUNTER 2023-08-03 23:35 | Outpatient (BNV) | payer BC, SELFPAY | END 2023-08-04 07:00 | PROVIDERS: Admitting Provider Internal Medicine; Emergency Provider Emergency Medicine; Visit Provider Internal Medicine | DX: I48.92 Unspecified atrial flutter (principal) | CPT/HCPCS: 93010; 93306 ==

== ENCOUNTER → 2023-08-03 23:35 | Outpatient (BNV) | payer BC, SELFPAY | PROVIDERS: Admitting Provider Internal Medicine; Emergency Provider Emergency Medicine; Visit Provider Internal Medicine | DX: I48.92 Unspecified atrial flutter (principal) | CPT/HCPCS: 93010; 99223 ==

== ENCOUNTER → 2023-08-03 23:35 | Outpatient (BNV) | payer BC, SELFPAY | PROVIDERS: Admitting Provider Internal Medicine; Emergency Provider Emergency Medicine; Visit Provider Internal Medicine | DX: I48.92 Unspecified atrial flutter (principal); E66.01 Morbid (severe) obesity due to excess calories; E78.1 Pure hyperglyceridemia; R79.89 Other specified abnormal findings of blood chemistry | CPT/HCPCS: 99223; 99238 ==